=== PATIENT | female | born 1955 | race Caucasian/White ===

== ENCOUNTER 2025-08-06 18:05 | Emergency (ER) | payer OTHER ==
[2025-08-06] MEDS ORDERED: HYDROcodone/Acetaminophen 5/325 mg Tablet ONE (19:20)
== END 2025-08-06 20:47 | disposition home or self-care (01) ==
LOC: MADERS 18:05
DX: G89.18 Other acute postprocedural pain (principal); M54.50 Low back pain, unspecified; I12.9 Hypertensive chronic kidney disease with stage 1 through stage 4 chronic kidney disease, or unspecified chronic kidney disease; N18.9 Chronic kidney disease, unspecified; Z87.891 Personal history of nicotine dependence; Z79.899 Other long term (current) drug therapy
CPT/HCPCS: 72131